=== PATIENT | male | born 1980 | race Asian ===

== ENCOUNTER → 2024-07-14 | Day surgery (SDC) | payer OTHER ==
[~2024-07-14] MED LIST: FENTANYL CITRATE/PF 100MCG/2 ML INJ ONE; LACTATED RINGER'S 1,000 ML ONE; LIDOCAINE HCL 2% LOCAL INJ 5 ML SDV VIAL INJ ONE; PANTOPRAZOLE SO40 MG PO; PROPOFOL IV EMULSION 10 MG/ML 20 ML VIAL ONE; PROPOFOL IV EMULSION 10 MG/ML 50 ML VIAL IV ONE
[2024-07-14 17:20] VITALS: BP 126/84; PULSE 84; RESP 17; TEMP 97.4; O2SAT 98
== END | disposition home or self-care (01) ==
LOC: OR 12:17
PROVIDERS: ATTEND Internal Medicine Gastroenterology
DX: K29.70 Gastritis, unspecified, without bleeding (principal); D13.2 Benign neoplasm of duodenum; D12.3 Benign neoplasm of transverse colon; K52.9 Noninfective gastroenteritis and colitis, unspecified; K21.9 Gastro-esophageal reflux disease without esophagitis; K20.90 Esophagitis, unspecified without bleeding; K64.8 Other hemorrhoids; M54.9 Dorsalgia, unspecified; E78.5 Hyperlipidemia, unspecified; F32.A Depression, unspecified; Z88.1 Allergy status to other antibiotic agents
CPT/HCPCS: 43239; 45380; 45385; J2003; J2470; J2704 ×2; J3010; J7121